=== PATIENT | male | born 1980 | race Caucasian/White ===

== ENCOUNTER 2017-02-17 20:21 | Emergency (ER) | payer SELFPAY ==
[2017-02-17 20:58] VITALS: BP 127/71; PULSE 83; TEMP 98.4; BMI 28.3
[2017-02-17] MEDS ORDERED: KETOROLAC TROMETHAMINE 60 MG/2 ML VIAL IM ONE (21:26)
[2017-02-17] MEDS ORDERED: KETOROLAC TROMETHAMINE 60 MG/2 ML VIAL ONE (21:27)
--- NOTE | 2017-02-17 21:32 | PDOC ---
History of Present Illness - General Chief Complaint: Pain Stated Complaint: LEG PAIN Time Seen by Provider: 02/17/17 21:03 History Source: Patient, Unavil. due to pt. cond. - History of Present Illness Initial Comments: 02/17/17 21:30 36-year-old male presents the ED with 1 month of right posterior leg pain that starts in his buttock and intimately goes to his right foot which she describes a sharp shock like pain. Patient states pain is worsened with ambulation and standing but denies discomfort when lying down still. 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 Patient denies sensory changes distally, lower extremity edema, skin discoloration. Occurred: reports: other ( 1 month) Severity: reports: mild Pain Location: reports: lower extremity (right ) Associated Symptoms (Fall): other Past History - Travel Traveled outside of the country in the last 30 days: No Close contact w/someone who was outside of country & ill: No - Past Medical History Allergies/Adverse Reactions: Allergies Allergy/AdvReac Type Severity Reaction Status Date / Time No Known Allergies Allergy Verified 02/17/17 20:58 Home Medications: Ambulatory Orders NK [No Known Home Medication] 02/17/17 - Psycho/Social/Smoking Cessation Hx Anxiety: No Suicidal Ideation: No Smoking History: Never smoked Have you smoked in the past 12 months: No Information on smoking cessation initiated: No Hx Alcohol Use: No Drug/Substance Use Hx: No Substance Use Type: None Patient Lives Alone: No Lives with/in: spouse/SO Review of Systems - Review of Systems Able to Perform ROS?: No Is the patient limited Kiswahili proficient: No Constitutional: No: Symptoms Reported HEENTM: No: Symptoms Reported Musculoskeletal: Yes: Muscle Pain (right buttock) Neurological: No: Symptoms reported Endocrine: No: Symptoms Reported Hematologic/Lymphatic: No: Symptoms Reported *Physical Exam - Vital Signs Last Vital Signs Temp Pulse Resp BP Pulse Ox 98.4 F 83 18 127/71 99 02/17/17 20:56 02/17/17 20:56 02/17/17 20:56 02/17/17 20:56 02/17/17 20:56 - Physical Exam General Appearance: Yes: Nourished, Appropriately Dressed. No: Apparent Distress HEENT: negative: Pale Conjunctivae Neck: positive: Supple Respiratory/Chest: positive: Lungs Clear, Normal Breath Sounds. negative: Respiratory Distress, Accessory Muscle Use Musculoskeletal: negative: Vertebral Tenderness Extremity: positive: Normal Capillary Refill, Normal Inspection, Normal Range of Motion, Tender (sciatica (rt)). negative: Pedal Edema Integumentary: positive: Normal Color, Warm, Moist Neurologic: positive: Motor Strength 5/5. negative: Sensory Deficit Medical Decision Making - Medical Decision Making 02/17/17 21:37 Patient with continual right sciatica pain worsened with ambulation. 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 Patient denies any back pain presently and had no back pain exam but did have tenderness over the right sciatica without sensory changes distally. Patient ordered for IM Toradol and recommended to take Motrin 600 mg every 8 hours and avoid movements that trigger discomfort. *DC/Admit/Observation/Transfer Diagnosis at time of Disposition: Sciatica Qualifiers: Laterality: right Qualified Code(s): M54.31 - Sciatica, right side - Discharge Dispostion Disposition: HOME Condition at time of disposition: Good - Referrals Referrals: Rob Mckeon MD [Staff Physician] - - Patient Instructions Printed Discharge Instructions: DI for Sciatica Additional Instructions: Please avoid movements that triggered discomfort. Please take Motrin as prescribed. Please follow-up with referred orthopedist if pain continues greater than 1 week. Print Language: GAMBIAN
== END 2017-02-17 21:49 | disposition home or self-care (01) ==
LOC: SUPCPDRO 20:21 → JERFT 20:21
PROC: 3E0233Z Introduction of Anti-inflammatory into Muscle, Percutaneous Approach (ICD-10-PCS; principal; 2017-02-17)
DX: M54.41 Lumbago with sciatica, right side (principal)
CPT/HCPCS: 99281-25